=== PATIENT | female | born 1995 | race Hispanic/Latino ===

== ENCOUNTER 2020-02-15 09:49 | Emergency (ER) | payer OTHER ==
[~2020-02-15] VITALS: Ht 154.9 cm; Wt 62.4 kg
[2020-02-15] MEDS ORDERED: NS 1,000 ML IV ONE (10:15)
[2020-02-15] MEDS ORDERED: PANTOPRAZOLE 40MG VIAL (C9113 PER 1) IV ONE (10:15)
[2020-02-15 10:56] LABS: BASO % 0.4 % (0.0-1.0); EOS % 0.8 % (0.0-3.0); HEMATOCRIT 41.2 % (36.0-47.0); HEMOGLOBIN 13.4 g/dl (12.0-15.5); LYMPH # 1.5 10^3/uL (1.5-5.0); LYMPH % 31.5 % (24.0-44.0); MEAN CORPUSCULAR HEMOGLOBIN 28.5 pg (27.0-33.0); MEAN CORPUSCULAR HGB CONC 32.5 g/dl (32.0-36.5); MEAN CORPUSCULAR VOLUME 87.5 fl (80.0-96.0); MONO # 0.3 10^3/uL (0.0-0.8); MONO % 5.1 % (0.0-5.0); PLATELET COUNT, AUTOMATED 229 10^3/uL (150-450); RED BLOOD COUNT 4.71 10^6/uL (4.00-5.40); WHITE BLOOD COUNT 4.9 10^3/uL (4.0-10.0)
--- NOTE | 2020-02-15 11:02 | REP ---
INDICATION: ruq pain. COMPARISON: None. TECHNIQUE: Real-time sonographic evaluation of right upper quadrant performed. FINDINGS: The gallbladder demonstrates no evidence of intraluminal sludge or calculi, wall thickening or pericholecystic fluid. There is no intrahepatic or extrahepatic biliary dilatation, common bile duct measures 4 mm in maximum diameter. The liver and pancreas demonstrates homogeneous echotexture with no gross mass. The right kidney demonstrates no hydronephrosis, with a normal size of 11.1 cm in length. No free fluid is seen. IMPRESSION: Negative right upper quadrant ultrasound. <Electronically signed by Delmar Nicole > 02/15/20 [id number]
[2020-02-15 11:21] LABS: ALBUMIN 3.7 GM/DL (3.2-5.2); BILIRUBIN,DIRECT 0.1 MG/DL (0.0-0.2); BILIRUBIN,TOTAL 0.4 MG/DL (0.2-1.0)
[2020-02-15 11:57] VITALS: BP 107/55
[2020-02-15] MEDS ORDERED: ISOVUE-370 76% 100ML VIAL As Ordered ONE (12:33)
--- NOTE | 2020-02-15 13:09 | REP ---
INDICATION: ruq pain. COMPARISON: None TECHNIQUE: Axial contrast-enhanced images from the lung bases to the pubic symphysis using 100 cc Isovue 370 intravenous contrast material. This CT examination was performed using the following dose reduction techniques: Automated exposure control, adjustment of mA and/or kv according to the patient's size, and the use of iterative reconstruction technique. FINDINGS: Liver, spleen, pancreas, gallbladder, bilateral adrenal glands and kidneys are normal. The enteric system including stomach, small, and large bowel appears normal. No evidence for obstruction or acute inflammatory process. Normal terminal ileum and appendix are identified in the right lower quadrant. Pelvis demonstrates normal bladder and age-appropriate prostate/seminal vesicles. No ascites. No free air. No intraperitoneal or retroperitoneal adenopathy. Abdominal aorta and vasculature appear normal. Musculoskeletal structures are intact and without acute osseous abnormality. IMPRESSION: No acute abdominopelvic pathology appreciated. <Electronically signed by Javon Saxena > 02/15/20 [id number]
[2020-02-15] MEDS ORDERED: PANT40TA29 PO (13:40)
== END 2020-02-15 14:00 | disposition home or self-care (01) ==
LOC: M ED 09:49
DX: K21.9 Gastro-esophageal reflux disease without esophagitis (principal)
CPT/HCPCS: 36415; 74177; 76705; 80047; 80076; 81001; 83690; 84702; 85025; 96361; 96374; 99284; C9113; Q9967

== ENCOUNTER 2020-05-01 15:43 | Emergency (ER) | payer OTHER ==
[~2020-05-01] VITALS: Ht 154.9 cm; Wt 66.1 kg
[~2020-05-01 15:43] MED LIST: PANT40TA29 PO
[2020-05-01] MEDS ORDERED: KELN1TAB PO (15:54)
[2020-05-01] MEDS ORDERED: KURV0.15 (15:54)
[2020-05-01] MEDS ORDERED: LIDOCAINE 1% MDV 20ML VIAL SC ONE (18:00)
--- NOTE | 2020-05-01 18:22 | REP ---
INDICATION: lac d/t broken ceramic, r/o FB COMPARISON: None. TECHNIQUE: AP, lateral, bilateral oblique views right 5th digit. FINDINGS: The osseous structures and joint spaces are intact and normal. There is no evidence for acute fracture or dislocation. Surrounding soft tissues are unremarkable. No subcutaneous emphysema or radiodense foreign body. IMPRESSION: No subcutaneous emphysema or foreign body identified. <Electronically signed by Javon Saxena > 05/01/20 [id number]
[2020-05-01] MEDS ORDERED: BOOSTRIX/ADACEL VACCINE (DIPHTH/PERTUSS/ACELL/TETANUS) 0.5ML SYR IM ONE (18:30)
[2020-05-01] MEDS ORDERED: KEFL500C17 PO (18:32)
[2020-05-01 18:53] VITALS: BP 127/79
== END 2020-05-01 18:56 | disposition home or self-care (01) ==
LOC: M ED 15:43
DX: S61.216A Laceration without foreign body of right little finger without damage to nail, initial encounter (principal); Y92.009 Unspecified place in unspecified non-institutional (private) residence as the place of occurrence of the external cause; Y93.9 Activity, unspecified; Y99.9 Unspecified external cause status

== ENCOUNTER → 2020-07-16 | Outpatient (REF) | payer OTHER ==
[~2020-07-16] MED LIST changes: +KEFL500C17 PO; +KELN1TAB PO; +KURV0.15; +PRENTAB29 PO
== END ==
LOC: M SFHCADAM 15:55
PROVIDERS: ATTEND Family Medicine
DX: Z34.91 Encounter for supervision of normal pregnancy, unspecified, first trimester (principal)
CPT/HCPCS: 84702; G0463

== ENCOUNTER → 2020-07-18 | Outpatient (CLI) | payer OTHER ==
[~2020-07-18] MED LIST changes: -PRENTAB29 PO
--- NOTE | 2020-07-18 12:59 | REP ---
INDICATION: PAIN RIGHT WRIST. COMPARISON: None. TECHNIQUE: There are two views of the right wrist. FINDINGS: There is no fracture or dislocation. Mineralization and joint spaces are normal. There are no calcifications or foreign bodies. IMPRESSION: Essentially negative two view right wrist. <Electronically signed by Delmar Rand > 07/18/20 [id number]
== END ==
LOC: M SOG 09:36
PROVIDERS: ATTEND Orthopaedic Surgery Sports Medicine
DX: M25.331 Other instability, right wrist (principal)

== ENCOUNTER 2020-07-23 23:10 | Emergency (ER) | payer OTHER ==
[~2020-07-23] VITALS: Ht 152.4 cm; Wt 64.2 kg
[2020-07-23 23:10] VITALS: BP 127/73
[2020-07-24 03:09] LABS: BASO % 0.2 % (0.0-1.0); EOS % 0.4 % (0.0-3.0); HEMATOCRIT 40.1 % (36.0-47.0); HEMOGLOBIN 13.6 g/dl (12.0-15.5); LYMPH # 2.8 10^3/uL (1.5-5.0); LYMPH % 32.6 % (24.0-44.0); MEAN CORPUSCULAR HEMOGLOBIN 29.6 pg (27.0-33.0); MEAN CORPUSCULAR HGB CONC 33.9 g/dl (32.0-36.5); MEAN CORPUSCULAR VOLUME 87.4 fl (80.0-96.0); MONO # 0.5 10^3/uL (0.0-0.8); MONO % 5.7 % (2.0-8.0); NEUTROPHILS # 5.2 10^3/uL (1.5-8.5); NEUTROPHILS % 60.9 % (36.0-66.0); PLATELET COUNT, AUTOMATED 238 10^3/uL (150-450); RED BLOOD COUNT 4.59 10^6/uL (4.00-5.40); WHITE BLOOD COUNT 8.6 10^3/uL (4.0-10.0)
[2020-07-24] MEDS ORDERED: PRENTAB29 PO (04:08)
[2020-07-24 04:42] LABS: CHLAMYDIA DNA AMPLIFICATION NEGATIVE (NEGATIVE); GC DNA AMPLIFICATION NEGATIVE (NEGATIVE)
--- NOTE | 2020-07-24 05:00 | REPVR ---
PROCEDURE INFORMATION: Exam: US First Trimester, Transabdominal and US Duplex Artery or Vein, Ovaries, Limited Exam date and time: 07/24/2020 3:59 AM Age: 24 years old Clinical indication: Lmp or gestational age (in weeks): 7wks3; Other: Vag bleeding; ; Additional info: Bleeding/pain/ TECHNIQUE: Imaging protocol: Real-time transabdominal obstetrical ultrasound of the maternal pelvis and a first trimester , less than 14 weeks 0 days, with image documentation. Real-time duplex ultrasound scan of the arterial or venous flow of the ovaries with B-mode, color Doppler flow and spectral waveform analysis, limited Duplex. COMPARISON: No relevant prior studies available. FINDINGS: Gestation: Intrauterine with visualization of an intrauterine gestational sac and yolk sac. No pole is visualized. Mean gestational sac size 1.1 cm. Placenta: No subchorionic bleed. Amniotic fluid: Amniotic fluid is normal for gestational age. BIOMETRY: Gestational age (AUA): Ultrasound gestational age 5 weeks 6 days. MATERNAL: Uterus: Uterus measures 7.7 x 4.1 x 4.7 cm. No myometrial mass. Cervix: Unremarkable. Right adnexa: Right ovary measures 3.2 x 2.3 x 2.7 cm and is unremarkable. Duplex blood flow present within the right ovary. No torsion. No adnexal masses. Left adnexa: Left ovary measures 2.9 x 1.7 x 2.1 cm and is unremarkable. Duplex blood flow present within the left ovary. No torsion. No adnexal masses. Intraperitoneal space: No free fluid. IMPRESSION: Intrauterine with visualization of the intrauterine gestational sac and yolk sac. No pole is visualized. Ultrasound gestational age based on mean sac size 5 weeks 6 days. Recommend short-term follow-up ultrasound to assess for pole development/viability. Electronically signed by: Javon Ochoa On 07/24/2020 05:00:22 AM
== END 2020-07-24 04:46 | disposition home or self-care (01) ==
LOC: M ED 23:10
DX: O20.0 Threatened abortion (principal); Z3A.00 Weeks of gestation of pregnancy not specified

== ENCOUNTER 2020-10-05 15:50 | Emergency (ER) | payer OTHER ==
[~2020-10-05] VITALS: Ht 157.5 cm; Wt 63.7 kg
[2020-10-05 15:50] VITALS: BP 168/87
[~2020-10-05 15:50] MED LIST changes: +PRENTAB29 PO
[2020-10-05] MEDS ORDERED: SERT-141 PO (16:11)
[2020-10-05 17:42] LABS: BASO % 0.3 % (0.0-1.0); EOS % 0.5 % (0.0-3.0); HEMATOCRIT 42.3 % (36.0-47.0); HEMOGLOBIN 13.8 g/dl (12.0-15.5); LYMPH # 1.4 10^3/uL (1.5-5.0); LYMPH % 21.1 % (24.0-44.0); MEAN CORPUSCULAR HEMOGLOBIN 29.1 pg (27.0-33.0); MEAN CORPUSCULAR HGB CONC 32.6 g/dl (32.0-36.5); MEAN CORPUSCULAR VOLUME 89.2 fl (80.0-96.0); MONO # 0.3 10^3/uL (0.0-0.8); MONO % 5.2 % (2.0-8.0); NEUTROPHILS # 4.7 10^3/uL (1.5-8.5); NEUTROPHILS % 72.7 % (36.0-66.0); PLATELET COUNT, AUTOMATED 241 10^3/uL (150-450); RED BLOOD COUNT 4.74 10^6/uL (4.00-5.40); WHITE BLOOD COUNT 6.5 10^3/uL (4.0-10.0)
[2020-10-05 18:06] LABS: BILIRUBIN,DIRECT 0.2 MG/DL (0.0-0.2); BILIRUBIN,TOTAL 0.7 MG/DL (0.2-1.0); TOTAL PROTEIN 7.5 GM/DL (6.4-8.2)
== END 2020-10-05 18:45 | disposition home or self-care (01) ==
LOC: M ED 15:50
DX: K21.9 Gastro-esophageal reflux disease without esophagitis (principal); I10 Essential (primary) hypertension; Z87.59 Personal history of other complications of pregnancy, childbirth and the puerperium; Z88.8 Allergy status to other drugs, medicaments and biological substances

== ENCOUNTER → 2021-01-22 | Outpatient (RCR) | payer OTHER ==
[~2021-01-22] MED LIST changes: +SERT-141 PO
== END ==
LOC: M PT 08:21
PROVIDERS: ATTEND Family Medicine
DX: M54.42 Lumbago with sciatica, left side (principal)

== ENCOUNTER 2021-01-26 21:06 | Emergency (ER) | payer OTHER ==
[~2021-01-26] VITALS: Ht 154.9 cm; Wt 63.2 kg
[2021-01-26 21:06] VITALS: BP 112/67
== END 2021-01-26 21:46 | disposition left against medical advice (07) ==
LOC: M ED 21:06
DX: Z53.21 Procedure and treatment not carried out due to patient leaving prior to being seen by health care provider (principal)

== ENCOUNTER 2021-01-28 14:54 | Outpatient (RCR) | payer OTHER | END 2021-02-22 | LOC: M PT 14:54 | PROVIDERS: ATTEND Family Medicine | DX: M54.42 Lumbago with sciatica, left side (principal) ==

== ENCOUNTER → 2021-01-28 | Outpatient (CLI) | payer OTHER ==
[2021-01-28 14:41] LABS: BASO % 0.2 % (0.0-1.0); EOS % 0.3 % (0.0-3.0); HEMATOCRIT 40.3 % (36.0-47.0); HEMOGLOBIN 13.7 g/dl (12.0-15.5); LYMPH # 1.5 10^3/uL (1.5-5.0); LYMPH % 23.4 % (24.0-44.0); MEAN CORPUSCULAR HEMOGLOBIN 29.4 pg (27.0-33.0); MEAN CORPUSCULAR VOLUME 86.5 fl (80.0-96.0); MONO # 0.3 10^3/uL (0.0-0.8); MONO % 4.7 % (2.0-8.0); NEUTROPHILS # 4.6 10^3/uL (1.5-8.5); NEUTROPHILS % 71.2 % (36.0-66.0); PLATELET COUNT, AUTOMATED 227 10^3/uL (150-450); RED BLOOD COUNT 4.66 10^6/uL (4.00-5.40); WHITE BLOOD COUNT 6.4 10^3/uL (4.0-10.0)
[2021-01-28 17:41] LABS: HEPATITIS C VIRUS ABY INDEX 0.1 INDEX (<0.8); HIV 1&2 SCREEN CENTAUR NEGATIVE (NEGATIVE)
[2021-01-28 19:35] LABS: GC DNA AMPLIFICATION NEGATIVE (NEGATIVE)
== END ==
LOC: M PLALAB 11:47
PROVIDERS: ATTEND Obstetrics & Gynecology
DX: Z34.91 Encounter for supervision of normal pregnancy, unspecified, first trimester (principal); Z3A.00 Weeks of gestation of pregnancy not specified

== ENCOUNTER → 2021-01-30 | Outpatient (CLI) | payer OTHER | LOC: M PLALAB 15:16 | PROVIDERS: ATTEND Obstetrics & Gynecology | DX: Z53.9 Procedure and treatment not carried out, unspecified reason (principal) ==

== ENCOUNTER → 2021-03-02 | Outpatient (REF) | payer OTHER ==
[~2021-03-02] MED LIST changes: +MM S100C PO; +OMEP10CASR PO; +PREN1CHW6 PO
[2021-03-02 18:46] LABS: APPEARANCE, URINE CLOUDY (CLEAR); BACTERIA, URINE AUTO 2+ (NEGATIVE); BILIRUBIN, URINE AUTO NEGATIVE (NEGATIVE); BLOOD, URINE BLOOD NEGATIVE (NEGATIVE); COLOR, URINE YELLOW (YELLOW); GLUCOSE, URINE (UA) AUTO NEGATIVE (NEGATIVE); KETONE, URINE AUTO 1+ mg/dL (NEGATIVE); LEUKOCYTE ESTERASE, URINE AUTO 3+ (NEGATIVE); MUCUS, URINE SMALL (NEGATIVE); NITRITE, URINE AUTO POSITIVE (NEGATIVE); PROTEIN, URINE AUTO NEGATIVE (NEGATIVE); RBC, URINE AUTO 31 /HPF (0-3); SPECIFIC GRAVITY URINE AUTO 1.018 (1.002-1.035); SQUAMOUS EPITHELIAL CELL UR AU 3 /HPF (0-6); UROBILINOGEN, URINE AUTO 0.2 mg/dL (0.0-2.0); WBC, URINE AUTO TNTC /HPF (0-3)
== END ==
LOC: M SFHCWAGY 16:43
PROVIDERS: ATTEND Advanced Practice Midwife
DX: R30.0 Dysuria (principal)
CPT/HCPCS: 81001; 87088; 87186; G0463

== ENCOUNTER → 2021-03-26 | Outpatient (CLI) | payer OTHER | LOC: M WHC 09:01 | PROVIDERS: ATTEND Specialist | DX: Z34.82 Encounter for supervision of other normal pregnancy, second trimester (principal); Z3A.20 20 weeks gestation of pregnancy ==

== ENCOUNTER → 2021-03-27 | Outpatient (REF) | payer OTHER ==
[~2021-03-27] MED LIST changes: -MM S100C PO; -OMEP10CASR PO; -PREN1CHW6 PO
== END ==
LOC: M SFHCWAGY 16:38
PROVIDERS: ATTEND Advanced Practice Midwife
DX: Z34.82 Encounter for supervision of other normal pregnancy, second trimester (principal); Z3A.00 Weeks of gestation of pregnancy not specified
CPT/HCPCS: 87086; G0463

== ENCOUNTER → 2021-04-09 | Outpatient (CLI) | payer OTHER ==
--- NOTE | 2021-04-09 12:01 | REP ---
INDICATION: F/U ANATOMY COMPARISON: 03/26/2021 TECHNIQUE: Transabdominal obstetrical ultrasound with color Doppler evaluation. FINDINGS: Examination demonstrates a single live intrauterine in cephalic presentation. motion is identified by technologist. Placenta is noted posterior and grade 1 without evidence for placenta previa or abruption. Amniotic fluid volume is normal. Cervix measures 3.1 cm in length and appears closed.. Selected gestational age: 21 weeks 6 days with TIAGO 08/14/2021. Gestational age by current measurements 22 weeks 4 days with TIAGO 08/09/2021. FHR equals 150 beats per minute. Estimated weight 494 grams (68thpercentile). Anatomical assessment demonstrates normal structures including four-chamber heart/ventricular outflow tracts. IMPRESSION: Single live intrauterine in cephalic presentation demonstrating appropriate estimated weight and growth. In conjunction with prior examination anatomical assessment is complete and normal. <Electronically signed by Javon Saxena > 04/09/21 1330
== END ==
LOC: M WHC 10:32
PROVIDERS: ATTEND Advanced Practice Midwife
DX: Z34.82 Encounter for supervision of other normal pregnancy, second trimester (principal); Z3A.21 21 weeks gestation of pregnancy

== ENCOUNTER → 2021-05-25 | Outpatient (CLI) | payer OTHER ==
[~2021-05-25] MED LIST changes: +MM S100C PO; +OMEP10CASR PO; +PREN1CHW6 PO
[2021-05-25 15:15] LABS: HEMATOCRIT 34.4 % (36.0-47.0); HEMOGLOBIN 11.2 g/dl (12.0-15.5); MEAN CORPUSCULAR HEMOGLOBIN 28.9 pg (27.0-33.0); MEAN CORPUSCULAR HGB CONC 32.6 g/dl (32.0-36.5); MEAN CORPUSCULAR VOLUME 88.9 fl (80.0-96.0); PLATELET COUNT, AUTOMATED 215 10^3/uL (150-450); RED BLOOD COUNT 3.87 10^6/uL (4.00-5.40); WHITE BLOOD COUNT 7.9 10^3/uL (4.0-10.0)
[2021-05-25 17:28] LABS: GC DNA AMPLIFICATION NEGATIVE (NEGATIVE)
== END ==
LOC: M PLALAB 05-12 10:23
PROVIDERS: ATTEND Specialist
DX: Z34.82 Encounter for supervision of other normal pregnancy, second trimester (principal); Z3A.23 23 weeks gestation of pregnancy

== ENCOUNTER 2021-06-04 19:45 | Outpatient (CLI) | payer OTHER ==
[~2021-06-04] VITALS: Ht 154.9 cm; Wt 72.1 kg
[~2021-06-04 19:45] MED LIST changes: -MM S100C PO; -OMEP10CASR PO; -PREN1CHW6 PO
[2021-06-04 20:01] VITALS: BP 117/73
[2021-06-04] MEDS ORDERED: PREN1CHW6 PO (20:13)
[2021-06-04] MEDS ORDERED: OMEP10CASR PO (20:13)
[2021-06-04] MEDS ORDERED: MM S100C PO (20:14)
[2021-06-04] MEDS ORDERED: HOME MED LIST COMPLETE! XX SCH (20:15)
== END 2021-06-04 21:06 | disposition home or self-care (01) ==
LOC: M LDO 19:45
PROVIDERS: ATTEND Specialist
DX: O36.8130 Decreased fetal movements, third trimester, not applicable or unspecified (principal); Z3A.29 29 weeks gestation of pregnancy
CPT/HCPCS: 59025; G0378; G0463

== ENCOUNTER → 2021-07-20 | Outpatient (REF) | payer OTHER ==
[~2021-07-20] MED LIST changes: +MM S100C PO; +OMEP10CASR PO; +PREN1CHW6 PO
== END ==
LOC: M SFHCWAGY 17:21
PROVIDERS: ATTEND Obstetrics & Gynecology
DX: Z36.85 Encounter for antenatal screening for Streptococcus B (principal)
CPT/HCPCS: 87081; G0463

== ENCOUNTER 2021-07-26 21:47 | Outpatient (CLI) | payer OTHER ==
[~2021-07-26] VITALS: Ht 152.4 cm; Wt 78.6 kg
[2021-07-26] MEDS ORDERED: HOME MED LIST COMPLETE! XX SCH (22:05)
[2021-07-26 22:07] VITALS: BP 132/81
== END 2021-07-27 00:29 | disposition home or self-care (01) ==
LOC: M LDO 21:47
PROVIDERS: ATTEND Obstetrics & Gynecology
DX: O60.03 Preterm labor without delivery, third trimester (principal); O26.893 Other specified pregnancy related conditions, third trimester; R10.2 Pelvic and perineal pain; Z3A.37 37 weeks gestation of pregnancy
CPT/HCPCS: 59025; G0463

== ENCOUNTER 2021-07-30 23:05 | Inpatient (IN) | payer OTHER ==
[~2021-07-30] VITALS: Ht 152.4 cm; Wt 77.7 kg
[2021-07-31] VITALS (46 sets, daily range): BP systolic 87–149; BP diastolic 52–98
[2021-07-31] MEDS ORDERED: HOME MED LIST COMPLETE! XX SCH
[2021-07-31] MEDS ORDERED: PROMETHAZINE 25MG/ML 1ML VIAL IV PRN (00:55)
[2021-07-31] MEDS ORDERED: BUTORPHANOL 2 MG/ML INJ (J0595) IV ONE (00:55)
[2021-07-31 01:34] LABS: CREATININE,RANDOM URINE 65.5 MG/DL; TOTAL PROTEIN,RANDOM URINE 15.8 MG/DL (0.0-12.0)
[2021-07-31 01:37] LABS: HEMATOCRIT 35.4 % (36.0-47.0); HEMOGLOBIN 11.4 g/dl (12.0-15.5); MEAN CORPUSCULAR HEMOGLOBIN 26.5 pg (27.0-33.0); MEAN CORPUSCULAR HGB CONC 32.2 g/dl (32.0-36.5); MEAN CORPUSCULAR VOLUME 82.3 fl (80.0-96.0); PLATELET COUNT, AUTOMATED 160 10^3/uL (150-450); WHITE BLOOD COUNT 9.7 10^3/uL (4.0-10.0)
[2021-07-31 02:04] LABS: ALT/SGPT 20 U/L (12-78); BILIRUBIN,TOTAL 0.2 MG/DL (0.2-1.0); CREATININE FOR GFR 0.86 MG/DL (0.55-1.30); GLOMERULAR FILTRATION RATE > 60.0 (>60); LDH LACTATE DEHYDROGENASE 253 U/L (84-246); URIC ACID 6.3 MG/DL (2.6-6.0)
[2021-07-31] MEDS ORDERED: REFLB XX ONE (05:02)
[2021-07-31] MEDS ORDERED: FENTANYL 2MCG/ML ROPIVACAINE 0.2% IN 0.9% NACL 100ML IVBAG As Ordered ONE (05:03)
[2021-07-31] MEDS ORDERED: diphenhydrAMINE 50MG/ML VIAL (J1200) IV PRN (06:15)
[2021-07-31] MEDS ORDERED: EPIDURAL COMMENT XX SCH (06:15)
[2021-07-31] MEDS ORDERED: EPIDURAL/PCA KEYS XX PRN (06:15)
[2021-07-31] MEDS ORDERED: ePHEDrine SULFATE 25 MG/5 ML(5MG/ML) SYRINGE IV PRN (06:15)
[2021-07-31] MEDS ORDERED: ONDANSETRON 4MG/2ML VIAL IV PRN (06:15)
[2021-07-31] MEDS ORDERED: REFRIGERATOR IV KEYS XX PRN (06:15)
[2021-07-31] MEDS ORDERED: NALOXONE INJ 0.4MG/1ML VIAL (J2310 PER 1MG) IV PRN (06:15)
[2021-07-31] MEDS ORDERED: FENTANYL/ROPIVACAINE/NACL BAG 100 ML EPIDURAL SCH (06:15)
[2021-07-31] MEDS ORDERED: LACTATED RINGER'S 1000 ML IV PRN (06:15)
[2021-07-31] MEDS ORDERED: METHYLERGONOVINE MALEATE 0.2 MG/ML VIAL (J2210) IM PRN (08:10)
[2021-07-31] MEDS ORDERED: CARBOPROST TROMETHAMINE 250 MCG/ML AMP IM PRN (08:10)
[2021-07-31] MEDS ORDERED: TRANEXAMIC ACID INJection 1,000 MG in NS 100 ML IV PRN (08:10)
[2021-07-31] MEDS: PRENATAL VITAMINS CHEWABLE TABLET PO SCH (09:00)
[2021-07-31] MEDS ORDERED: OXYTOCIN 30 UNITS IN 0.9% NaCl 500ML IV BAG (J2590) As Ordered ONE (10:16)
[2021-07-31] MEDS ORDERED: OXYTOCIN DRIP 30 UNITS in IV 1 EA IV SCH ×2 (10:55→13:25)
[2021-07-31] MEDS ORDERED: DIBUCAINE 1% OINTMENT 30GM TOP PRN (13:25)
[2021-07-31] MEDS ORDERED: METHYLERGONOVINE MALEATE 0.2 MG TAB PO PRN (13:25)
[2021-07-31] MEDS ORDERED: MEASLES,MUMPS,RUBELLA VACCINE INJ (MMR-II) (90707) SC SCH (13:25)
[2021-07-31] MEDS ORDERED: RHOGAM 300 MCG (1500 IU) INJ (J2790) IM SCH (13:25)
[2021-07-31] MEDS: AMPICILLIN SOD 2 GM in D5W MINI-BAG PLUS 100 ML IV SCH ×2 (14:08→23:04)
[2021-07-31] MEDS ORDERED: GENTAMICIN IV SCH (16:00)
[2021-07-31] MEDS ORDERED: D5W IV SCH (16:00)
[2021-07-31] MEDS: ACETAMINOPHEN 500 MG TAB PO PRN (16:53)
[2021-07-31] MEDS: IBUPROFEN 600MG TAB PO PRN (19:59)
[2021-07-31] MEDS: DOCUSATE SODIUM 100MG CAPSULE PO PRN (20:50)
[2021-08-01] MEDS: ACETAMINOPHEN 500 MG TAB PO PRN ×2 (03:30→19:18)
[2021-08-01 05:35] VITALS: BP 111/63
[2021-08-01] MEDS: AMPICILLIN SOD 2 GM in D5W MINI-BAG PLUS 100 ML IV SCH (06:33)
[2021-08-01] MEDS: PRENATAL VITAMINS CHEWABLE TABLET PO SCH (09:11)
[2021-08-01] MEDS: IBUPROFEN 600MG TAB PO PRN ×2 (09:11→18:22)
[2021-08-01] MEDS: DOCUSATE SODIUM 100MG CAPSULE PO PRN (16:48)
[2021-08-01 18:00] VITALS: BP 127/88
[2021-08-02] MEDS: IBUPROFEN 600MG TAB PO PRN ×2 (00:07→05:46)
[2021-08-02] MEDS: ACETAMINOPHEN 500 MG TAB PO PRN (01:41)
[2021-08-02 05:47] VITALS: BP 137/76
[2021-08-02] MEDS: PRENATAL VITAMINS CHEWABLE TABLET PO SCH (08:23)
[2021-08-02] MEDS ORDERED: medroxyPROGESTERone ACET IM SUSP 150 MG/ML VIAL (J1050) IM ONE (11:05)
[2021-08-02] MEDS ORDERED: ACET-683 PO (11:05)
[2021-08-02] MEDS ORDERED: COLA100C5 PO (11:05)
[2021-08-02] MEDS ORDERED: IBUP-1022 PO (11:05)
== END 2021-08-02 12:35 | disposition home or self-care (01) | DRG 807 ==
LOC: M LDO 23:05 → M LDI 07-31 02:32 → M OBS 07-31 18:00
PROVIDERS: ADMIT Obstetrics & Gynecology; ATTEND Obstetrics & Gynecology
PROC: 10E0XZZ Delivery of Products of Conception, External Approach (ICD-10-PCS; principal; 2021-07-31)
PROC: 0KQM0ZZ Repair Perineum Muscle, Open Approach (ICD-10-PCS; 2021-07-31)
PROC: 0HQ9XZZ Repair Perineum Skin, External Approach (ICD-10-PCS; 2021-07-31)
DX: O13.4 Gestational [pregnancy-induced] hypertension without significant proteinuria, complicating childbirth (principal); Z37.0 Single live birth; Z3A.38 38 weeks gestation of pregnancy; O70.0 First degree perineal laceration during delivery; O70.1 Second degree perineal laceration during delivery